=== PATIENT | female | born 1970 | race Caucasian/White ===

== ENCOUNTER 2017-10-14 15:02 | Inpatient (IN) | END 2017-10-18 13:45 | disposition home or self-care (01) | DRG 433 ==

== ENCOUNTER 2017-10-19 14:03 | Emergency (ER) | END 2017-10-19 17:35 | disposition home or self-care (01) ==

== ENCOUNTER 2017-10-22 11:41 | Emergency (ER) | END 2017-10-22 17:39 | disposition home or self-care (01) ==

== ENCOUNTER 2017-10-30 22:01 | Inpatient (IN) | END 2017-11-10 18:40 | disposition home health service (06) | DRG 871 ==

== ENCOUNTER 2017-11-28 12:00 | Inpatient (IN) | END 2017-12-19 02:19 | disposition EXP | DRG 871 ==